=== PATIENT | male | born 1940 | race Caucasian/White ===

== ENCOUNTER 2019-02-21 05:55 | Day surgery (SDC) | payer MEDICARE, BC ==
[2019-02-21] MEDS ORDERED: Sodium Chloride 0.9% 1,000 ML IV SCH (06:00)
[2019-02-21] MEDS ORDERED: Sodium Chloride 0.9% 10 ML Syringe FLUSH PRN (06:00)
[2019-02-21] MEDS ORDERED: Gatifloxacin 0.5% Ophth Soln 2.5 ML Bot EYELF SCH (06:00)
[2019-02-21] MEDS: Phenylephrine 10% Ophth Soln 5 ML Bot EYELF SCH ×3 (06:20→06:46)
[2019-02-21] MEDS: Cyclopentolate 1% Opth Soln 2 ML Bottle EYELF SCH ×3 (06:25→06:52)
[2019-02-21] MEDS ORDERED: Water For Irrigation,Sterile 1,500 ML Container IRR ONE (07:54)
[2019-02-21] MEDS ORDERED: Balanced Salt Solution Plus Ophth Irrig 500 ML Bottle IOCULAR ONE (07:54)
[2019-02-21] MEDS ORDERED: Balanced Salt Solution Ophth Irrig 15 ML Bottle EYELF ONE (07:54)
[2019-02-21] MEDS ORDERED: Carbachol 0.01% Intraocular 1.5 ML Vial EYELF ONE (07:54)
[2019-02-21] MEDS ORDERED: Lidocaine 2% with EPINEPHrine 1:100,000 20 ML MDV INJECT ONE (07:55)
[2019-02-21] MEDS ORDERED: EPINEPHrine 1 MG/1 ML Amp ONE (07:55)
[2019-02-21] MEDS ORDERED: Dexamethasone/Neomycin/Polymyxin B Ophth Oint 3.5 GM Tube EYELF ONE (07:55)
[2019-02-21] MEDS ORDERED: Hyaluronate Sodium 1% 0.85 ML Syringe IOCULAR ONE (07:56)
[2019-02-21] MEDS ORDERED: Lidocaine 1% PF 2 ML SDV INJECT ONE (07:56)
[2019-02-21] MEDS ORDERED: Tetracaine HCl/PF 0.5% 4 ML Bottle EYEBOTH ONE (07:56)
--- NOTE | 2019-02-21 15:00 | OR ---
DATE OF SURGERY: 02/21/2019 SURGEON: Juan Nye MD PREOPERATIVE DIAGNOSIS: Cataract, left eye. POSTOPERATIVE DIAGNOSIS: Cataract, left eye. OPERATION PERFORMED: Phacoemulsification with posterior chamber lens insertion, left eye. HISTORY: The patient presents at this time with an increasing amount of difficulty using the left eye as he attempts to see TV and read. The left eye has a vision of 20/50. The left lens has a 3+ nuclear sclerosis and 3+ cortical change. This eye has a combined cataract and a cataract of aging. FINDINGS: The patient was taken to the operating room where appropriate anesthesia, sedation and monitoring were provided. A retrobulbar block was given on the left side. The eye was massaged and was found to be appropriately soft. The eye and eyelids were then prepped and draped in the usual sterile manner. A lid speculum was placed. A micro sharp blade was used to enter the anterior chamber inside the limbus inferior-temporally. Xylocaine was irrigated into the eye at this site. Healon was irrigated into the eye through this site. Then using a 2.85 mm corneal blade an entry was made into the anterior chamber just inside the limbus temporally. Healon was again irrigated into the eye. Then using a cystitome, the anterior capsulorrhexis was created. The lens nucleus was hydrodissected using a 27 gauge cannula and balanced salt solution. The phacoemulsification unit was introduced through the temporal site and the Isauro spatula through the inferior temporal site. In so doing, the lens nucleus was phacoemulsified. The cortical fragments of the lens were removed using the irrigation aspiration unit. The posterior capsule was polished. Healon was irrigated into the eye. The posterior chamber lens was inserted and rotated into position inside the capsular bag. The Healon was irrigated out of the eye. Miostat was irrigated into the eye and the pupil rounded nicely. A single interrupted 10-0 Nylon suture was placed through the temporal corneal incision site. Balanced salt solution was irrigated into the eye. The wound was tested and found to be tight. Maxitrol ointment was placed into the patient's left eye. The eyelids were closed and an eye patch and crowley shield were placed. The patient left the operating room in good condition. /[id number]/MODL
== END 2019-02-21 08:35 | disposition home or self-care (01) ==
LOC: KA.SDS 05:55
PROVIDERS: ATTEND Ophthalmology
DX: E11.36 Type 2 diabetes mellitus with diabetic cataract (principal); H25.812 Combined forms of age-related cataract, left eye; E78.5 Hyperlipidemia, unspecified; E11.42 Type 2 diabetes mellitus with diabetic polyneuropathy; E66.9 Obesity, unspecified; Z87.891 Personal history of nicotine dependence; Z88.8 Allergy status to other drugs, medicaments and biological substances; Z79.84 Long term (current) use of oral hypoglycemic drugs; Z79.899 Other long term (current) drug therapy; Z79.01 Long term (current) use of anticoagulants; Z68.31 Body mass index [BMI] 31.0-31.9, adult
CPT/HCPCS: 66984; 82962; A9270; J0171; J2001; J7030; V2632; 00142

== ENCOUNTER 2019-04-18 05:48 | Day surgery (SDC) | payer MEDICARE, BC ==
[2019-04-18] MEDS ORDERED: Sodium Chloride 0.9% 1,000 ML IV SCH (06:00)
[2019-04-18] MEDS ORDERED: Sodium Chloride 0.9% 10 ML Syringe FLUSH PRN (06:00)
[2019-04-18] MEDS ORDERED: Gatifloxacin 0.5% Ophth Soln 2.5 ML Bot EYERT SCH (06:00)
[2019-04-18] MEDS: Phenylephrine 10% Ophth Soln 5 ML Bot EYERT SCH ×3 (06:03→06:24)
[2019-04-18] MEDS: Cyclopentolate 1% Opth Soln 2 ML Bottle EYERT SCH ×3 (06:08→06:29)
[2019-04-18] MEDS ORDERED: Water For Irrigation,Sterile 1,500 ML Container IRR ONE (07:44)
[2019-04-18] MEDS ORDERED: Balanced Salt Solution Ophth Irrig 15 ML Bottle EYERT ONE (07:45)
[2019-04-18] MEDS ORDERED: Carbachol 0.01% Intraocular 1.5 ML Vial EYERT ONE (07:45)
[2019-04-18] MEDS ORDERED: EPINEPHrine 1 MG/1 ML Amp ONE (07:45)
[2019-04-18] MEDS ORDERED: Balanced Salt Solution Plus Ophth Irrig 500 ML Bottle IOCULAR ONE (07:45)
[2019-04-18] MEDS ORDERED: Dexamethasone/Neomycin/Polymyxin B Ophth Oint 3.5 GM Tube EYERT ONE (07:46)
[2019-04-18] MEDS ORDERED: Lidocaine 1% 10 ML MDV INJECT ONE (07:46)
[2019-04-18] MEDS ORDERED: Lidocaine 2% with EPINEPHrine 1:100,000 20 ML MDV INJECT ONE (07:46)
[2019-04-18] MEDS ORDERED: Hyaluronate Sodium 1% 0.85 ML Syringe IOCULAR ONE (07:47)
[2019-04-18] MEDS ORDERED: Tetracaine HCl/PF 0.5% 4 ML Bottle EYEBOTH ONE (07:47)
--- NOTE | 2019-04-18 13:06 | OR ---
DATE OF SURGERY: 04/18/2019 SURGEON: Juan Nye MD PREOPERATIVE DIAGNOSIS: Cataract, right eye. POSTOPERATIVE DIAGNOSIS: Cataract, right eye. OPERATION PERFORMED: Phacoemulsification with posterior chamber lens insertion, right eye. HISTORY: The patient presents at this time with increasing amount of difficulty using the right eye to see TV and to read. The right eye's vision is 20/50. The right lens has a 3+ nuclear sclerosis and a 2 to 3+ cortical change. This eye has a combined cataract and a cataract of aging. FINDINGS: The patient was taken to the operating room where appropriate anesthesia, sedation and monitoring were provided. A retrobulbar block was given on the right side. The eye was massaged and was found to be appropriately soft. The eye and eyelids were then prepped and draped in the usual sterile manner. A lid speculum was placed. A micro sharp blade was used to enter the anterior chamber inside the limbus superior-temporally. Xylocaine was irrigated into the eye at this site. Healon was irrigated into the eye through this site. Then using a 2.85 mm corneal blade an entry was made into the anterior chamber just inside the limbus temporally. Healon was again irrigated into the eye. Then using a cystitome, the anterior capsulorrhexis was created. The lens nucleus was hydrodissected using a 27 gauge cannula and balanced salt solution. The phacoemulsification unit was introduced through the temporal site and the Isauro spatula through the superior temporal site. In so doing, the lens nucleus was phacoemulsified. The cortical fragments of the lens were removed using the irrigation aspiration unit. The posterior capsule was polished. Healon was irrigated into the eye. The posterior chamber lens was inserted and rotated into position inside the capsular bag. The Healon was irrigated out of the eye. Miostat was irrigated into the eye and the pupil rounded nicely. A single interrupted 10-0 Nylon suture was placed through the temporal corneal incision site. Balanced salt solution was irrigated into the eye. The wound was tested and found to be tight. Maxitrol ointment was placed into the patient's right eye. The eyelids were closed and an eye patch and crowley shield were placed. The patient left the operating room in good condition. /[id number]/MODL
== END 2019-04-18 08:34 | disposition home or self-care (01) ==
LOC: KA.SDS 05:48
PROVIDERS: ATTEND Ophthalmology
DX: E11.36 Type 2 diabetes mellitus with diabetic cataract (principal); H25.811 Combined forms of age-related cataract, right eye; E11.42 Type 2 diabetes mellitus with diabetic polyneuropathy; E78.5 Hyperlipidemia, unspecified; E78.2 Mixed hyperlipidemia; E66.9 Obesity, unspecified; Z87.891 Personal history of nicotine dependence; Z79.899 Other long term (current) drug therapy; Z79.84 Long term (current) use of oral hypoglycemic drugs; Z88.8 Allergy status to other drugs, medicaments and biological substances; Z68.31 Body mass index [BMI] 31.0-31.9, adult
CPT/HCPCS: 00142; 82962; A9270-GY; J0171; J2001; J7030; V2632

== ENCOUNTER 2020-08-08 16:07 | Emergency (ER) | payer MEDICARE, BC ==
[2020-08-08] MEDS: Lidocaine 2% with EPINEPHrine 1:200,000 20 ML SDV INFILT ONE (17:15)
--- NOTE | 2020-08-08 17:48 | EDM.PDOC ---
ED HPI GENERAL MEDICAL PROBLEM - General Chief Complaint: Lower Extremity Injury/Pain Stated Complaint: laceration Time Seen by Provider: 08/08/20 17:10 Source of Information: Reports: Patient - History of Present Illness INITIAL COMMENTS - FREE TEXT/NARRATIVE: Alex, 79-year-old male, presents emergency department the laceration of the left lateral leg. Had his tetanus updated yesterday. Was at [facility] looking for steel to help the neighbor finish a roof when someone picked up the piece to move it and had a angled edge that cut the leg. Bleeding is controlled at this time there is no other injury as it was a single event issue. Right Lower Leg Pain Score (Numeric/FACES): 2 - Related Data Allergies Allergy/AdvReac Type Severity Reaction Status Date / Time simvastatin Allergy Dizziness Verified 08/08/20 16:35 Home Meds: Home Meds Acetaminophen 1,000 mg PO Q8H PRN 02/20/19 [History] Cetirizine [ZyrTEC] 10 mg PO DAILY PRN 02/20/19 [History] Cholecalciferol (Vitamin D3) [Vitamin D3] 1,000 unit PO DAILY 02/20/19 [History] Fenofibrate Nanocrystallized [Fenofibrate] 145 mg PO DAILY 02/20/19 [History] Gabapentin [Neurontin] 300 mg PO TID 02/20/19 [History] Chambers-3/DHA/Epa/Fish Oil [Chambers-3 Fish Oil 1,000 MG Sfgl] 1,000 mg PO DAILY 02/20/19 [History] glipiZIDE [Glipizide Xl] 5 mg PO DAILY 02/20/19 [History] metFORMIN HCl [Metformin HCl] 1,000 mg PO BID 02/20/19 [History] Past Medical History HEENT History: Reports: Cataract, Impaired Vision Cardiovascular History: Reports: High Cholesterol Respiratory History: Reports: Other (See Below) Other Respiratory History: Pulmonary vascular congestion Gastrointestinal History: Reports: Chronic Constipation, Colon Polyp, GERD Musculoskeletal History: Reports: Back Pain, Chronic, Other (See Below) Other Musculoskeletal History: Chronic shoulder pain Neurological History: Reports: Neuropathy, Peripheral Psychiatric History: Reports: None Endocrine/Metabolic History: Reports: Diabetes, Type II Hematologic History: Reports: None Oncologic (Cancer) History: Reports: None Dermatologic History: Reports: Psoriasis - Past Surgical History HEENT Surgical History: Reports: Cataract Surgery Cardiovascular Surgical History: Reports: None Respiratory Surgical History: Reports: None GI Surgical History: Reports: Appendectomy, Colonoscopy Neurological Surgical History: Reports: None Musculoskeletal Surgical History: Reports: Arthroscopic Knee, Hip Replacement Oncologic Surgical History: Reports: None Social & Family History - Family History Family Medical History: No Pertinent Family History - Tobacco Use Tobacco Use Status *Q: Never Tobacco User - Caffeine Use Caffeine Use: Reports: Coffee - Recreational Drug Use Recreational Drug Use: No Review of Systems - Review of Systems Review Of Systems: Comprehensive ROS is negative, except as noted in HPI. ED EXAM, GENERAL - Physical Exam Exam: See Below Free Text/Narrative:: Alert oriented in no distress. He has no respiratory distress no audible wheezes regular pulse. Focused examination to the right lower extremity shows 4 cm laceration to the lateral aspect of the right lower leg. This is somewhat gaping but does not have active bleeding at this time. It is full-thickness to the center but superficial skin to the edge margins. He is able to move the foot toes ankle and bend the knee with no deficits. Sensation is intact to palpation distal of the incision. ED TRAUMA EXTREMITY PROCEDURES - Laceration/Wound Repair Right Lower Lateral Leg Lac/Wound Length In cm: 4 Appearance: Subcutaneous, Clean Distal NVT: Neuro & Vascular Intact, No Tendon Injury Anesthetic Type: Local Local Anesthesia - Lidocaine (Xylocaine): 2% with EPI Local Anesthetic Volume: 3cc Skin Prep: Chlorhexidine (Hibiciens) Exploration/Debridement/Repair: Wound Explored, In a Bloodless Field Closed With: Sutures Suture Size: 5-0 # of Sutures: 5 Suture Type: Nylon Course - Vital Signs Last Recorded V/S: Last Vital Signs Temp 96.7 F L 08/08/20 17:10 Pulse 67 08/08/20 17:10 Resp 21 H 08/08/20 17:10 BP 140/80 08/08/20 17:10 Pulse Ox 94 L 08/08/20 17:10 - Orders/Labs/Meds Meds: Medications Discontinued Medications Generic Name Dose Route Start Last Admin Trade Name Freq PRN Reason Stop Dose Admin Lidocaine/Epinephrine Confirm 08/08/20 17:21 08/08/20 19:00 Lidocaine 2% With Epinephrine 1:200,000 20 Ml Sdv Administered 08/08/20 17:22 Not Given Dose 20 ml .ROUTE .STK-MED ONE Lidocaine/Epinephrine 20 ml 08/08/20 17:15 08/08/20 17:15 Lidocaine 2% With Epinephrine 1:200,000 20 Ml Sdv INFILT 08/08/20 17:16 5 ml ONETIME ONE Administration Departure - Departure Time of Disposition: 17:47 Disposition: Home, Self-Care 01 Condition: Good Clinical Impression: Laceration - Discharge Information Instructions: Laceration Care, Adult, [id number] Referrals: Beatriz Mendoza NP [Primary Care Provider] - Forms: ED Department Discharge Additional Instructions: We placed 5 sutures in your leg that will need to be removed in 10 days. Call your clinic to establish an appointment for that. You can place ice pack or anything cool on this tonight to help reduce the swelling and elevate it is much as possible this evening. You need to avoid soaking, standing in water until the sutures come out. You may shower or wash with a towel but no sitting in bathtub or rod water. Continue your medications as directed and follow-up with your clinic as scheduled for suture removal. Sepsis Event Note (ED) - Evaluation Sepsis Screening Result: No Definite Risk - Focused Exam Vital Signs: Vital Signs Temp Pulse Resp BP Pulse Ox 08/08/20 17:10 96.7 F L 67 21 H 140/80 94 L 08/08/20 16:33 97.6 F 78 18 136/84 94 L - Problem List & Annotations (1) Laceration SNOMED Code(s): 744822759 Code(s): UMY2149 - Status: Acute - Problem List Review Problem List Initiated/Reviewed/Updated: Yes - Assessment/Plan Plan: We placed 5 sutures in your leg that will need to be removed in 10 days. Call your clinic to establish an appointment for that. You can place ice pack or anything cool on this tonight to help reduce the swelling and elevate it is much as possible this evening. You need to avoid soaking, standing in water until the sutures come out. You may shower or wash with a towel but no sitting in bathtub or rod water. Continue your medications as directed and follow-up with your clinic as scheduled for suture removal.
[2020-08-08] MEDS: Lidocaine 2% with EPINEPHrine 1:200,000 20 ML SDV ONE (19:00)
== END 2020-08-08 18:00 | disposition home or self-care (01) ==
LOC: KA.ED 16:07
DX: S81.811A Laceration without foreign body, right lower leg, initial encounter (principal); E11.9 Type 2 diabetes mellitus without complications; E78.00 Pure hypercholesterolemia, unspecified; Z79.84 Long term (current) use of oral hypoglycemic drugs; Z88.8 Allergy status to other drugs, medicaments and biological substances; W26.8XXA Contact with other sharp object(s), not elsewhere classified, initial encounter
CPT/HCPCS: 12002; 99282-25; 99283

== ENCOUNTER 2022-12-29 07:23 | Day surgery (SDC) | payer MEDICARE ==
[2022-12-29] MEDS ORDERED: Sodium Chloride 0.9% 10 ML Syringe FLUSH PRN (07:30)
[2022-12-29] MEDS: Sodium Chloride 0.9% 1,000 ML IV SCH (07:59)
[2022-12-29] MEDS ORDERED: Midazolam 1 MG/ML 2 ML SDV ONE (08:20)
[2022-12-29] MEDS ORDERED: Propofol 200 MG/20 ML SDV ONE (08:20)
[2022-12-29 13:44] VITALS: BP 128/64; PULSE 81
== END 2022-12-29 11:40 | disposition home or self-care (01) ==
LOC: KA.SDS 07:23
PROVIDERS: ATTEND Family Medicine
DX: K62.1 Rectal polyp (principal); K62.89 Other specified diseases of anus and rectum; K57.30 Diverticulosis of large intestine without perforation or abscess without bleeding; K64.8 Other hemorrhoids; Z79.84 Long term (current) use of oral hypoglycemic drugs; Z88.8 Allergy status to other drugs, medicaments and biological substances; Z79.899 Other long term (current) drug therapy
CPT/HCPCS: 00813; J2250; J2704; J7030